=== PATIENT | female | born 2000 | race Caucasian/White ===

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

== ENCOUNTER 2021-07-25 20:12 | Emergency (ER) | payer OTHER, SELFPAY ==
--- NOTE | ~2021-07-25 | XR_ITS ---
EXAMINATION: XR chest 2V EXAM DATE: 07/25/2021 20:52 INDICATION: Fatigue/sick x 3 weeks not getting better no cardiac hx. TECHNIQUE: Frontal and lateral projections of the chest obtained and reviewed. There is no prior tyler dy for comparison. FINDINGS: The lungs are clear. There are no pleural effusions. The cardiomediastinal silhouette is within normal limits. There is no pneumothorax suspected. The bones and soft tissues are unremarkab le. IMPRESSION: Normal chest x-ray exam. Reviewed, dictated and finalized at location A. HT TEST [employer] IMPRESSION: Normal chest x-ray exam.
[2021-07-25 20:19] VITALS: BP 112/78; PULSE 74; RESP 18; TEMP 36.4; O2SAT 99
--- NOTE | 2021-07-25 20:25 | ECG_ITS ---
Measurements Intervals [place] Rate: 86 P: 55 VT: 141 QRS: 14 QRSD: 117 T: 63 QT: 368 QTc: 442 Interpretive Statements SINUS RHYTHM INCOMPLETE RIGHT BUNDLE BRANCH BLOCK DELAYED PRECORDIAL R/S TRANSITION LOW VOLTAGE- PRECORDIAL LEADS BORDERLINE ECG Electronically Signed On 07-26-2021 6:29:07 [employer] by Sundar Go D.O.
[2021-07-25 20:50] LABS: Basophils Absolute Auto 0.1 K/mm3 (0.0-0.1); Basophils Percent Auto 0.9 % (0.2-1.2); Eosinophils Absolute Auto 0.1 K/mm3 (0-0.3); Hematocrit 40.8 % (37.0-47.0); Hemoglobin 13.9 g/dL (12.0-15.0); Immature Granulocyte Absolute 0.02 K/mm3 (0.00-0.031); Immature Granulocyte Percent A 0.3 % (0-0.5); Lymphocytes Absolute Auto 2.29 K/mm3 (0.9-3.2); Lymphocytes Percent Auto 33.2 % (18.3-44.2); Mean Corpuscular HGB Conc 34.1 g/dl (32-36); Mean Corpuscular Volume 91.1 fl (80-100); Mean Platelet Volume 9.9 fl (7.4-10.4); Monocytes Absolute Auto 0.5 K/mm3 (0.1-0.6); Monocytes Percent Auto 7.4 % (2.6-8.5); Neutrophils Absolute Auto 3.9 K/mm3 (1.3-6.7); Neutrophils Percent Auto 57.2 % (45.5-73.1); Platelet Count Result 273 k/mm3 (150-375); Red Blood Count 4.48 M/mm3 (4.2-5.4); Red Cell Distribution Width 12.4 % (11.5-14.5); White Blood Count 6.9 K/mm3 (4.5-10.0)
[2021-07-25 21:02] LABS: Alanine Aminotransferase 15 U/L (4-35); Albumin Level 4.6 g/dL (3.5-5.1); Alkaline Phosphatase 94 U/L (38-126); Anion Gap 10 mmol/L (8-16); Aspartate Amino Transferase 19 U/L (14-36); Bilirubin,Total 0.4 mg/dL (0.2-1.3); Blood Urea Nitrogen 12 mg/dL (7-17); Calcium 9.5 mg/dL (8.4-10.2); Carbon Dioxide 29 mmol/L (22-30); Chloride 99 mmol/L (98-107); Estimated CRCL calculation 110 ml/min; Estimated Glomerular Filt Rate > 60; Glucose 133 mg/dL (65-110); Potassium 3.5 mmol/L (3.4-5.0); Sodium 138 mmol/L (137-145)
[2021-07-25 21:05] LABS: Add Urine Microscopic? YES; Appearance Urine Cloudy (Clear); Bilirubin Urine Negative (Negative); Blood Urine Negative (Negative); Color Urine Yellow (Yellow); Glucose Urine UA 3+ mg/dL (Negative); Ketones Urine Negative (Negative); Leukocyte Esterase Ur 1+ LEU/UL (Negative); Nitrate Urine Negative (Negative); Protein Urine Negative (Negative); Specific Grav Ur 1.009 (1.001-1.035); Squamous Epithelial Cell Urine Many /hpf (Few); Urobilinogen Urine Negative mg/dL (<2.0)
[2021-07-25 22:49] VITALS: BP 111/75; PULSE 78; RESP 16; O2SAT 100
[2021-07-25 23:31] VITALS: BP 107/75; PULSE 88; RESP 18; O2SAT 99
[2021-07-26 00:09] LABS: CRP 1.6 mg/dL (<1.0); Lipase 26 U/L (23-300); Magnesium 1.8 mg/dL (1.6-2.3)
--- NOTE | 2021-07-26 00:10 | ED.WEAKNESS ---
HPI - Weakness General Chief complaint: Weakness Stated complaint: Flu like symptoms Time Seen by Provider: 07/25/21 22:52 Source: patient and family Mode of arrival: ambulatory Limitations: no limitations History of Present Illness HPI Narrative: 21-year-old female Here for evaluation of weakness and fatigue and lethargy which has been present for 3 or 4 weeks Patient is a college student at [employer] She previously had sought evaluation at [facility] there which sounds like it was pretty inconclusive She mentions that they told her that she might have anemia, thyroid problem Haemophilus influenza problem another bacteria problem or a virus Her symptoms are indeed pretty vague and nonspecific, effectively a lack of energy and sleeping a lot She does not have headaches she did have a non productive cough for just a couple of days. She has not had nausea or vomiting she does not have pain or burning when she urinates, has not had a fever Has had a bit of a scratchy throat but not really a sore throat She is diabetic and her blood sugars have been fine There was no change in her symptoms that prompted a visit to the ED, just that she was home from school for the weekend and could not get a appointment to see her primary care physician Related Data Allergies Allergy/AdvReac Type Severity Reaction Status Date / Time No Known Allergies Allergy Verified 11/16/15 08:57 Review of Systems Review of Systems: All systems reviewed & are unremarkable except as noted in HPI and below Constitutional: Constitutional: Reports no additional constitutional complaints, Denies chills, Reports fatigue, Denies fever(s), Denies headache(s) and Reports weakness Eyes: Eyes: Reports no additional eye complaints and Denies change in vision ENT: Reports dizziness, Denies headache(s) and Reports sore throat Cardiovascular: Cardiovascular: Denies chest pain and Denies dyspnea Respiratory: Respiratory: Denies cough and Denies dyspnea Gastrointestinal: Gastrointestinal: Denies abdominal pain, Denies diarrhea and Denies vomiting Comments: Poor appetite Genitourinary: Genitourinary: Denies urinary frequency and Denies dysuria Musculoskeletal: Musculoskeletal: Denies deformity, Denies arthralgias, Denies joint swelling and Denies numbness Integumentary/Breasts: Skin/Breast: Denies rash and Denies wounds Neurologic: Denies headache(s), Denies focal weakness, Denies numbness and Reports weakness Psychiatric: Psychiatric: Reports no additional psychiatric complaints Endocrine: Endocrine: Reports no additional endocrine complaints Hematologic/Lymphatic: Hematologic/Lymphatic: Reports no additional hematologic/lymphatic complaints Allergic/Immunologic: Allergic/Immunologic: Reports no additional allergic/immunologic complaints Exam Const: General: cooperative, no acute distress and alert Orientation/consciousness: patient oriented x3 (alert) HENMT: Head: normal to inspection, normocephalic and atraumatic Ears: external ears normal General nose exam: no epistaxis Eyes: Conjunctivae: conjunctivae normal EOM: EOMs intact bilaterally Neck: Neck: normal visual inspection, supple and no JVD Resp: Effort & Inspection: normal respiratory effort and not labored Auscultation: clear to auscultation bilaterally, no rales, no rhonchi, no wheezes and other (BS =) Cardio: Rate: regular rate Rhythm: regular rhythm Heart sounds: no murmurs GI: GI Palp: Yes Soft to palpation and No Tenderness to palpation present (GI) Skin: General skin exam: normal color and no rashes or lesions noted Neuro: General: patient oriented x3 (alert) and moves all extremities Speech: normal speech Extrem: General: normal to inspection and no pedal edema Psych: Affect: normal affect Course Course Emergency Course: Reviewed all results with patient and her mom, effectively everything is completely normal except that she does have a slight bump in her C-eddie
--- NOTE | 2021-07-26 00:19 | PC.NURSE ---
ED tray given plus OJ
[2021-07-26 00:23] LABS: Monoscreen Negative (Negative); Negative Monotest Control Negative (Negative); Positive Monotest Control Positive (Positive)
[2021-07-26 00:25] LABS: Free T4 Free Thyroxine 1.09 ng/mL (0.78-2.19)
[2021-07-26 00:42] LABS: Cortisol Random 3.58 ug/dL
[2021-07-26 01:28] VITALS: BP 103/73; PULSE 71; RESP 18; O2SAT 100
== END 2021-07-26 01:30 | disposition home or self-care (01) ==
PROVIDERS: Emergency Medicine; Emergency Provider Emergency Medicine
DX: R53.83 Other fatigue (principal)
CPT/HCPCS: 36415; 71046; 80053; 81001; 81025; 82533; 83690; 83735; 84439; 84443; 85025; 86140; 86308; 87086; 93005; 99283